=== PATIENT | male | born 1950 | race Caucasian/White ===

== ENCOUNTER 2020-08-10 13:27 | Emergency (ER) | payer MEDICARE, SELFPAY ==
[2020-08-10 13:37] VITALS: BP 135/79; PULSE 74; RESP 16; O2SAT 99; BMI 26.4
--- NOTE | 2020-08-10 13:44 | HMH.EDUTC ---
[facility] [place] Clinical Impression: Shingles Qualifiers: Herpes zoster complications: without complications Qualified Code(s): B02.9 - Zoster without complications Disposition: Home, Self-Care Condition on Discharge: Good Instructions: Shingles, DI for Shingles, Acyclovir Additional Instructions: Take your medicines exactly as prescribed. Call your doctor or nurse call line if you think you are having a problem with your medicine. Antiviral medicine helps you get better faster and may help prevent later problems. Try not to scratch or pick at the blisters. They will crust over and fall off on their own if you leave them alone. Put cool, wet cloths on the area to relieve pain and itching. You can also use calamine lotion. Try not to use so much lotion that it cakes and is hard to get off. Do not use thick ointment, such as petroleum jelly, on the sores. This will keep them from drying and healing. To help remove loose crusts, soak them in tap water. This can help decrease oozing, and dry and soothe the skin. Take an [id number] pain medicine, such as acetaminophen (Tylenol), ibuprofen (Advil, Motrin), or naproxen (Aleve). Avoid close contact with people until the blisters have healed. It is very important for you to avoid contact with anyone who has never had chickenpox or the chickenpox vaccine. women, young babies, and anyone else who has a hard time fighting infection (such as someone with HIV, diabetes, or cancer) is especially at risk. Follow up with EYE Doctor if you notice it is getting close to the eye Follow up with Family Doctor if needed Straight to ER if any life threatening symptoms Prescriptions: Acyclovir [Acyclovir 800mg tab] 800 mg PO 5XDAY 7 Days #35 tab Transmission Status: Pending to [id number] Referrals: Michelle Mendez [Primary Care Provider] - As needed Time of Disposition: 13:52 Medical Decision Making - Kleber Inquiry Pt receiving controlled substance: No Kleber was queried for this patient: No Vital Signs: 08/10/20 13:37 Pulse Rate [Radial] 74 Respiratory Rate 16 Blood Pressure [Right Arm] 135/79 Blood Pressure Mean [Right Arm] 97 Blood Pressure Source [Right Arm] Automatic Cuff Blood Pressure Position [Right Arm] Sitting 02 Sat by Pulse Oximetry 99 Oxygen Delivery Method Room Air [facility] [place]PI - General Stated complaint: rash on scalp forehead and around right ey Time Seen by Provider: 08/10/20 13:40 Mode of Arrival: Ambulatory Source of Information: Patient Limitations: No Limitations Description of Symptoms (Recalled from Triage Doc. by RN): rash, spot on right side of eye, across forhead and in scalp for 3 days, states it just itches. HEENT Symptoms (Recalled from RN notes): No Resp Symptoms (Recalled from RN notes): No Skin Symptoms (Recalled from RN notes): Yes MS Symptoms (Recalled from RN notes): No Functional Status (Recalled from RN notes): wnl - History of Present Illness Provider Complaint: Patient states that for about 3 days he noticed he had a rash on his scalp that come down his forehead and was beside his right eye States that it burned when he scratched it and felt itchy and irritated States that nothing he has tried has helped it so when it looked like it was starting to get blisters on it he came in - Related Data Previous Rx's Medication Instructions Recorded Pantoprazole Sodium [Protonix 40mg 40 mg PO DAILY 30 Days #30 tab 10/19/19 tablet] Acyclovir [Acyclovir 800mg tab] 800 mg PO 5XDAY 7 Days #35 tab 08/10/20 Allergies Allergy/AdvReac Type Severity Reaction Status Date / Time No Known Allergies Allergy Verified 08/22/18 13:33 - Worker's Comp Is this a Worker's Comp case?: No [facility] History - Hepatitis A Screen Drug use history?: No High risk sexual behaviors?: No History of sexually transmitted infection?: No 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er?: No Do you have indoor plumbing?: Yes Do yo
[2020-08-10 14:01] VITALS: BP 135/79; PULSE 74; RESP 16; TEMP 36.7; O2SAT 99
== END 2020-08-10 14:02 | disposition home or self-care (01) ==
PROVIDERS: Emergency Provider Nurse Practitioner; PCP Family Medicine
DX: B02.9 Zoster without complications (principal)
CPT/HCPCS: G0463; 99201

== ENCOUNTER 2020-11-25 13:03 | Emergency (ER) | payer MEDICARE, SELFPAY ==
[2020-11-25 13:21] VITALS: BP 138/73; PULSE 79; RESP 14; TEMP 36.4; O2SAT 97; BMI 26.6
--- NOTE | 2020-11-25 13:24 | XR_ITS ---
PROCEDURE: XR HAND RT MIN 3V CLINICAL INDICATION: fall COMPARISON: FINDINGS: None available The joint spaces are well-preserved. No significant degenerative/arthritic changes. No erosive changes evident. Other findings:Vascular calcification is noted. IMPRESSION: No acute findings. Dictated by: Key Corona 11/25/2020 14:31 Key Corona in OV 11/25/2020 14:31
--- NOTE | 2020-11-25 13:24 | XR_ITS ---
PROCEDURE: XR HAND LT MIN 3V CLINICAL INDICATION: fall COMPARISON: No exams were available for comparison FINDINGS: No acute fractures or dislocations. Bone density is normal. There is focal calcific density noted adjacent to the scaphoid, appears to be vascular calcification. Otherwise the carpal bones are unremarkable. No significant soft tissue abnormality is noted. IMPRESSION: No acute fractures or dislocations. Dictated by: Key Corona 11/25/2020 14:31 Key Corona in OV 11/25/2020 14:31
--- NOTE | 2020-11-25 13:24 | XR_ITS ---
PROCEDURE: XR WRIST LT MIN 3V CLINICAL INDICATION: fall COMPARISON: No exams were available for comparison FINDINGS: No fracture or dislocation. No lytic or blastic change. There is normal mineralization. The joint spaces are well-preserved. No significant degenerative/arthritic changes. No erosive changes evident. Other findings:Vascular calcification is noted. IMPRESSION: No acute findings. Dictated by: Key Corona 11/25/2020 14:33 Key Corona in OV 11/25/2020 14:33
--- NOTE | 2020-11-25 13:30 | HMH.EDUTC ---
[facility] [place]ression: Wrist sprain Qualifiers: Encounter type: initial encounter Laterality: left Qualified Code(s): S63.502A - Unspecified sprain of left wrist, initial encounter Disposition: Home, Self-Care Condition on Discharge: Good Instructions: How To Perform RICE (Rest, Ice, Compress, Elevate) Additional Instructions: *RICE, Rest the extremity, Ice 15-20 minutes 3-4 times daily, Compress- wear the shahab wrap as discussed as much as possible to help reduce swelling and pain, Elevate the extremity when at rest *Shahab wrap/Velcro wrist splint is for support and help control swelling, use it except in the shower. Be sure that is not to tight but not to loose either *Elevate when resting *Ibuprofen every 6-8 hours as needed for pain an inflammation. If need something more can take Tylenol in between doses of Ibuprofen to help Immediately follow up with your family doctor for new or worsening of symptoms, or no noticeable improvement over the next 3-5 days Call Back to the [facility] later this evening for official Radiology reading of your xray and further instructions Return if needed Follow up with Family Doctor if needed FOllow up with Orthopedics if needed Straight to ER if any life threatening symptoms Referrals: Michelle Mendez [Primary Care Provider] - As needed Donna Foote MD [Physician] - As needed Time of Disposition: 14:11 Medical Decision Making - Kleber Inquiry Pt receiving controlled substance: No Kleber was queried for this patient: No Vital Signs: 11/25/20 13:21 11/25/20 14:07 Temperature 97.6 F 98 F Temperature Source Tympanic Pulse Rate 75 Pulse Rate [Right] 79 Respiratory Rate 14 12 Blood Pressure 128/76 Blood Pressure [Right Arm] 138/73 Blood Pressure Mean [Right Arm] 94 Blood Pressure Source [Right Arm] Automatic Cuff Blood Pressure Position [Right Arm] Sitting 02 Sat by Pulse Oximetry 97 Oxygen Delivery Method Room Air - Radiology Data #1 Image(s): Wrist (left), Hand (left) Image Reviewed: Yes I reviewed the patient's radiology image Preliminary Findings: No Fracture Seen #3 Image(s): Hand (right) Image Reviewed: Yes I reviewed the patient's radiology image Preliminary Findings: No Fracture Seen [facility] [place] - General Stated complaint: Possible Sprain Left wrist Time Seen by Provider: 11/25/20 13:30 Mode of Arrival: Ambulatory Source of Information: Patient Limitations: No Limitations Description of Symptoms (Recalled from Triage Doc. 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 He also is complaining of R hand discomfort and is unable to grasp objects tightly. 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 States that ever since he has been having pain in his left wrist and thumb area when he moves his thumb certain ways States also having pain in the top of his hand and feels like it is hard to surgery aid things at time - Related Data Previous Rx's Medication Instructions Recorded Pantoprazole Sodium [Protonix 40mg 40 mg PO DAILY 30 Days #30 tab 10/19/19 tablet] Acyclovir [Acyclovir 800mg tab] 800 mg PO 5XDAY 7 Days #35 tab 08/10/20 Allergies Allergy/AdvReac Type Severity Reaction Status Date / Time No Known Allergies Allergy Verified 11/25/20 13:25 - Worker's Comp Is this a Worker's Comp case?: No [facility] History - Hepatitis A Screen Drug use history?: No High risk sexual behaviors?: No History of sexually transmitted infection?: No 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er?: No
[2020-11-25 14:07] VITALS: BP 128/76; PULSE 75; RESP 12; TEMP 36.6
== END 2020-11-25 14:33 | disposition home or self-care (01) ==
PROVIDERS: Emergency Provider Nurse Practitioner; PCP Family Medicine
DX: S63.502A Unspecified sprain of left wrist, initial encounter (principal); W01.0XXA Fall on same level from slipping, tripping and stumbling without subsequent striking against object, initial encounter; Y92.73 Farm field as the place of occurrence of the external cause
CPT/HCPCS: G0463; 73110; 73130; 99202

== ENCOUNTER 2021-04-26 18:41 | Emergency (ER) | payer MEDICARE, SELFPAY ==
[2021-04-26 19:41] VITALS: BP 141/93; PULSE 62; RESP 18; TEMP 36.9; O2SAT 98; BMI 26.4
--- NOTE | 2021-04-26 20:27 | HMH.EDUTC ---
[facility] [place] Clinical Impression: Cellulitis of left foot Disposition: Home, Self-Care Condition on Discharge: Good Instructions: Cellulitis Additional Instructions: Keep the affected area clean and dry. Follow up with your regular doctor. Take the antibiotics as directed and apply the topical antibiotics as directed. Apply warm wet compresses to the affected area three or four times per day or soak the foot in warm epsom salts water three or four times per day. I put in a referral to Dr. Solorio (podiatry). If this is not getting better fairly quickly, please follow up with her. Her office number will be on this paperwork. GO TO THE ER FOR ANY WORSENING SYMPTOMS Prescriptions: Sulfamethoxazole/Trimethoprim [Bactrim DS tablet] 1 each PO BID 10 Days #20 tab Transmission Status: Pending to [facility] Mupirocin [Bactroban 2% Ointment 22gm tube] 1 applicatio TP TID 7 Days #1 tube Transmission Status: Pending to [facility] cephALEXin [cephALEXin 500mg capsule] 500 mg PO Q6H 10 Days #40 cap [facility]: [facility] Referrals: Michelle Mendez [Primary Care Provider] - Leyda Solorio DPM [Staff Physician] - Time of Disposition: 20:44 Medical Decision Making - Medical Records Medical records reviewed: No: I reviewed the patient's medical records. - Kleber Inquiry Pt receiving controlled substance: No Vital Signs: 04/26/21 19:41 04/26/21 20:36 Temperature 98.5 F 98.4 F Temperature Source Oral Pulse Rate 64 Pulse Rate [Left] 62 Respiratory Rate 18 16 Blood Pressure 141/93 H Blood Pressure [Right Arm] 141/93 H Blood Pressure Mean [Right Arm] 109 02 Sat by Pulse Oximetry 98 Orders (Tests/Meds): ED MEDICATIONS Discontinued Medications Generic Name Dose Route Start Last Admin Trade Name Freq PRN Reason Stop Dose Admin Ceftriaxone Sodium 1 gm 04/26/21 20:26 04/26/21 20:31 Ceftriaxone 1gm Vial IM 04/26/21 20:27 Not Given ONCE ONE Lidocaine HCl 0 ml 04/26/21 20:26 04/26/21 20:31 Lidocaine 1% 5ml Pf Vial IM 04/26/21 20:27 Not Given ONCE ONE [facility] [place] - General Stated complaint: LEFT FOOT LITTLE TOE Time Seen by Provider: 04/26/21 20:27 Mode of Arrival: Ambulatory Source of Information: Patient Limitations: No Limitations Description of Symptoms (Recalled from Triage Doc. by RN): PT STATES BETWEEN HIS TWO SMALL TOES ON THE L FOOT THE SKIN IS INFECTED. HEENT Symptoms (Recalled from RN notes): No Resp Symptoms (Recalled from RN notes): No Skin Symptoms (Recalled from RN notes): Yes (INFECTION BETWEEN TWO SMALL TOES OF L FOOT) MS Symptoms (Recalled from RN notes): No Functional Status (Recalled from RN notes): NA - History of Present Illness Provider Complaint: He states that over the past 2 days he has began to have an open area develope between his left 4th and 5th toe. He states that the area has been very tender touch and it has been red around the 5th toe. He denies any known injury. He is not a known diabetic. - Related Data Previous Rx's Medication Instructions Recorded methylprednisolone 4 mg tablets in See Rx Instructions PO PER PKG DIR 03/06/21 a dose pack #21 tab triamcinolone acetonide 0.5 % 1 applic TOPICAL BID 7 Days #15 g 03/06/21 topical cream Mupirocin [Bactroban 2% Ointment 1 applicatio TP TID 7 Days #1 tube 04/26/21 22gm tube] Sulfamethoxazole/Trimethoprim 1 each PO BID 10 Days #20 tab 04/26/21 [Bactrim DS tablet] cephALEXin [cephALEXin 500mg 500 mg PO Q6H 10 Days #40 cap 04/26/21 capsule] Allergies Allergy/AdvReac Type Severity Reaction Status Date / Time No Known Allergies Allergy Verified 03/06/21 12:08 - Worker's Comp Is this a Worker's Comp case?: No [facility] History - Hepatitis A Screen Drug use history?: No High risk sexual behaviors?: No History of sexually transmitted infection?: No 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
[2021-04-26 20:36] VITALS: BP 141/93; PULSE 64; RESP 16; TEMP 36.9
== END 2021-04-26 21:03 | disposition home or self-care (01) ==
PROVIDERS: Emergency Provider Nurse Practitioner Family; PCP Family Medicine
DX: L03.116 Cellulitis of left lower limb (principal)
CPT/HCPCS: 87070; 87077; 87186; 87205; 99202; G0463

== ENCOUNTER 2024-06-07 09:46 | Outpatient (CLI) | payer MEDICARE, SELFPAY ==
[2024-06-07 19:07] LABS: Hemoglobin A1C 5.4 % (4.0-6.0)
[2024-06-07 19:14] LABS: Alanine Aminotransferase 23 U/L (12-78); Albumin Level 4.6 g/dl (3.5-5.0); Albumin/Globulin Ratio 1.7 (1.1-1.8); Alkaline Phosphatase 58 U/L (38-126); Anion Gap 7.4 mEq/L (5-15); Aspartate Amino Transferase 31 U/L (17-59); Bilirubin,Total 1.1 mg/dl (0.2-1.3); Blood Urea Nitrogen 16 mg/dl (9-20); Carbon Dioxide 31 mmol/L (22.0-30.0); Chloride 105 mmol/L (98-107); Chol/HDL Ratio 4.9 (1-3.5); Cholesterol 178 mg/dl (140-200); Estimated Glomerular Filt Rate 83 ml/min (>60); GFR (African American) 101 ML/MIN (>60); Globulin 2.7 g/dL (1.3-3.2); Glucose 98 mg/dl (74-100); HDL Cholesterol 36 mg/dl (40-60); Potassium 5.4 mmoL/L (3.5-5.1); Sodium 138 mmol/L (136-145); Total Protein,Serum 7.3 g/dl (6.3-8.2); Triglycerides 126 mg/dl (30-150); VLDL Cholesterol 25 mg/dL (0-40)
[2024-06-07 19:26] LABS: Direct LDL Cholesterol 111.05 mg/dL (100-129)
[2024-06-07 19:33] LABS: 25-OH Vitamin D, Total 56.6 ng/mL (30-100)
[2024-06-07 19:49] LABS: Prostate Specific Ag Screen 1.7 ng/ml (0.0-4.0)
[2024-06-07 20:01] LABS: Basophils # 0.1 K/mm3 (0-0.2); Basophils % 1.7 % (0.1-2.0); Eosinophils # 0.3 K/mm3 (0.0-0.4); Eosinophils % 4.7 % (0.1-12.0); Hematocrit 46.1 % (42.0-52.0); Hemoglobin 15.2 g/dL (14.1-18.0); Lymphocytes # 1.4 K/mm3 (0.7-4.5); Lymphocytes % 22.7 % (10-50); Mean Corpuscular HGB Conc 33.1 g/dL (31.8-35.4); Mean Corpuscular Hemoglobin 28.4 pg (27.0-31.2); Mean Corpuscular Volume 85.8 fl (80-94); Mean Platelet Volume 8.8 fl (7.4-10.4); Monocytes # 0.4 K/mm3 (0.1-1.0); Monocytes % 6.1 % (1.7-9.3); Neutrophils % 64.8 % (37.0-80.0); Platelet Count 250 K/mm3 (142-424); Red Blood Count 5.37 M/mm3 (4.60-6.20); Red Cell Distribution Width 14.1 % (11.5-17.5); White Blood Count 6.2 K/mm3 (4.8-10.8)
== END 2024-06-07 23:59 | disposition home or self-care (01) ==
LOC: LAB.DROPOF 06-08 09:47
PROVIDERS: PCP Internal Medicine; Visit Provider Internal Medicine
DX: E55.9 Vitamin D deficiency, unspecified (principal); Z00.00 Encounter for general adult medical examination without abnormal findings; Z13.1 Encounter for screening for diabetes mellitus; Z12.5 Encounter for screening for malignant neoplasm of prostate; J06.9 Acute upper respiratory infection, unspecified; E66.3 Overweight
CPT/HCPCS: 80053; 80061; 82306; 83036; 85025; G0103

== ENCOUNTER 2024-09-01 10:35 | Emergency (ER) | payer MEDICARE, SELFPAY ==
[2024-09-01 12:00] VITALS: BP 141/68; PULSE 63; RESP 19; TEMP 36.8; O2SAT 99; BMI 24.3
--- NOTE | 2024-09-01 12:21 | EXP.UTC ---
Discharge Plan Disposition Patient Disposition: Home, Self-Care Condition: Good Prescriptions Prescriptions: New azithromycin 250 mg tablet See Rx Instructions .ROUTE .COMPLEX Qty: 6 0RF Rx Instructions: For 250 mg dose pack: take 500 mg today (day 1), then 250 mg for 4 days (days 2-5) methylprednisolone [Medrol (Moises)] 4 mg tablets,dose pack See Rx Instructions .ROUTE .COMPLEX 6 Days Qty: 21 0RF Rx Instructions: 4 mg orally ;Medrol dose taper moises guaifenesin 400 mg tablet 400 mg PO Q4H PRN (Reason: cough) Qty: 60 0RF Referrals Follow up/Referrals: Hieu Briggs DO [Primary Care Provider] - See instructions Activity Restrictions/Add. Instructions Additional Instructions/Restrictions: Take medication as prescribed. Increase fluids and rest. Follow up with PCP if symptoms persist or worsen. Clinical Impressions Clinical Impression: Acute lower respiratory infection Instructions Patient Instructions: Acute Bronchitis Print Language Print Language: Niuean Discharge ED Provider: Laura Akhtar [facility] General Stated complaint: sinus congestion, cough Mode of Arrival: Ambulatory Source of Information: Patient Limitations: No Limitations Time Seen by Provider: 09/01/24 12:21 Description of Symptoms (Recalled from Triage Doc. by RN): PATIENT C/O COUGH AND SINUS DRAINAGE FOR APPROX 2 WEEKS HEENT Symptoms (Recalled from RN notes): Yes Resp Symptoms (Recalled from RN notes): Yes Skin Symptoms (Recalled from RN notes): No MS Symptoms (Recalled from RN notes): No Functional Status (Recalled from RN notes): WNL History of Present Illness Provider Complaint: Pt reports that he has had a cough and runny nose for the past 2 weeks. He reports that his sinus drainage has turned green and he is coughing so much that he is unable to sleep at night. Related Data Previous Rx's ?Medication ?Instructions ?Recorded azithromycin 250 mg tablet See Rx Instructions PO .COMPLEX #6 09/01/24 tabs guaifenesin 400 mg tablet 400 mg PO Q4H PRN cough #60 tabs 09/01/24 methylprednisolone 4 mg tablets in See Rx Instructions .Route 09/01/24 a dose pack (Medrol (Moises)) .COMPLEX 6 days #21 tabs Allergies Allergy/AdvReac Type Severity Reaction Status Date / Time No Known Allergies Allergy Verified 06/07/24 08:41 Worker's Comp Is this a Worker's Comp case?: No [facility] Disclaimer: The information contained in this section may have been updated after the patient was seen, as this information can be updated by other users. Medical History (Updated 09/01/24 @ 12:33 by Laura Akhtar APRN) Anxiety Colon cancer screening Social History Smoking Status: Never smoker alcohol intake: never current occupational status: retired Travel in the last 8 weeks: None housing: house Have you lived/traveled outside [place] in past 30 days?: No Contact w/someone who lives/traveled outside [place] past 30 days?: No Exposure to someone with infectious disease in past 14 days?: No Do you have a fever (greater than 100.4 F or 38 C)?: No Have you tested positive for COVID-19: No Exposed to someone with COVID-19 in past 14 days?: No Do you have a sore throat?: No Do you have a cough?: Yes Do you have any weakness?: No Do you have any diarrhea?: No Are you experiencing any unusual bleeding?: No Do you have any muscle aches/pain?: No Do you have any abdominal pain?: No Are you experiencing loss of taste or smell?: No ROS Obtained: Yes All systems reviewed & no additional complaints except as documented Constitutional Constitutional: Reports system reviewed and no additional complaints, except as documented and Reports headache(s) Eyes Eyes: Reports system reviewed and no additional complaints, except as documented ENT Ears, Nose, Mouth, and Throat: Reports system reviewed and no additional complaints, except as documented, Reports headache(s), Reports nasal congestion and Reports nasal discharge Cardiovascular Cardiovascular: Reports system reviewed and no additional complaints, except as documented Respiratory Respiratory: Reports system reviewed and no additional complaints, except as documented, Reports change in phlegm color and Reports cough Gastrointestinal Gastrointestingal: Reports system reviewed and no additional complaints, except as documented Genitourinary Male Genitourinary: Reports system reviewed and no additional complaints, except as documented Musculoskeletal Musculoskeletal: Reports system reviewed and no additional complaints, except as documented Integumentary/Breasts Skin/Breast: Reports system reviewed and no additional complaints, except as documented Neurologic Neurologic: Reports system reviewed and no additional complaints, except as documented and Reports headache(s) Endocrine Endocrine: Reports system reviewed and no additional complaints, except as documented Hematologic/Lymphatic Henatologic/Lymphatic: Reports system reviewed and no additional complaints, except as documented Allergic/Immunologic Allergic/Immunologic: Reports system reviewed and no additional complaints, except as documented Physical Exam General General appearance: alert and in no apparent distress Head Head exam: atraumatic and normocephalic Eye Eye exam: Present normal appearance Expanded ENT Exam External ear exam: Present normal external inspection Nose exam: Present sinus tenderness (frontal) Nasal speculum exam: Bilateral: purulent discharge Mouth exam: Present normal external inspection Teeth exam: Present normal inspection Throat exam: Present normal inspection Neck Neck exam: Present normal inspection; Absent lymphadenopathy Chest Chest inspection: Present normal inspection and symmetric chest wall rise Respiratory Respiratory exam: Present other (crackles in right lower lobe.) Cardiovascular Cardiovascular exam: Present regular rate and normal rhythm Abdominal Exam Abdominal exam: Present soft and normal bowel sounds Extremities Exam Extremities exam: Present normal inspection Back Exam Back exam: Present normal inspection Neurological Exam Neurological exam: Present alert and oriented X3 Psychiatric Psychiatric exam: Present normal affect and normal mood Skin Skin exam: Present warm, dry and intact Lymphatic Lymphatic Findings: no adenopathy Medical Decision Making Medical Records Screening: Per USPSTF and CDC recommendations, given the prevalence of disease in our region, it is our hospital?s policy to screen for HIV and viral Hepatitis for all patients aged 18 and over and those with ongoing risk factors. Kleber Inquiry Pt receiving controlled substance: No Kleber was queried for this patient: No Vital Signs: 09/01/24 12:00 Temperature 98.3 F Temperature Source Oral Pulse Rate [Left Brachial] 63 Respiratory Rate 19 Blood Pressure [Left Arm] 141/68 H Blood Pressure Mean [Left Arm] 92 Blood Pressure Source [Left Arm] Automatic Cuff Blood Pressure Position [Left Arm] Sitting 02 Sat by Pulse Oximetry 99 Oxygen Delivery Method Room Air
[2024-09-01 12:30] VITALS: BP 141/68; PULSE 63; RESP 19; TEMP 36.8; O2SAT 99
== END 2024-09-01 12:34 | disposition home or self-care (01) ==
PROVIDERS: Emergency Provider Nurse Practitioner Family; PCP Internal Medicine
DX: J06.9 Acute upper respiratory infection, unspecified (principal)
CPT/HCPCS: 99213; G0381